=== PATIENT | male | born 1985 | race Caucasian/White ===

== ENCOUNTER 2019-10-06 18:45 | Emergency (ER) | payer OTHER, SELFPAY ==
[2019-10-06 19:02] VITALS: BP 114/72; PULSE 75; RESP 18; TEMP 37; O2SAT 99
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
== END 2019-10-06 19:20 | disposition home or self-care (01) ==
PROVIDERS: Emergency Provider Nurse Practitioner
DX: S51.002A Unspecified open wound of left elbow, initial encounter (principal); V19.9XXA Pedal cyclist (driver) (passenger) injured in unspecified traffic accident, initial encounter; Y93.55 Activity, bike riding; Z94.7 Corneal transplant status
CPT/HCPCS: 99213; G0463